=== PATIENT | male | born 1980 | race Caucasian/White ===

== ENCOUNTER 2017-08-11 14:23 | Emergency (ER) | payer SELFPAY ==
[2017-08-11 14:26] VITALS: BP 151/77; PULSE 84; RESP 17; TEMP 36.9; O2SAT 99; BMI 34.0
[2017-08-11 14:33] VITALS: O2SAT 98
--- NOTE | 2017-08-11 14:52 | RAD_ITS ---
STUDY: X-RAY - LEFT ANKLE REASON FOR EXAM: Male, 37 years old. POUND PIECE OF STEEL FELL ON ANKLE, PAIN TECHNIQUE: 3 view(s) of the ankle. COMPARISON: None. FINDINGS: Normal visualized distal tibia and fibula. Normal medial and lateral malleoli. Normal tibiotalar articulation and ankle mortise. Normal visualized talus and calcaneus. The visualized subtalar, talonavicular, calcaneocuboid and tarsal articulations are normal. There is subcutaneous soft tissue edema at the lateral aspect of the ankle. RAD/Ankle min 3 Views IMPRESSION: There is subcutaneous soft tissue edema at the lateral aspect of the ankle. Electronically Signed: Bettye Lopez MD at 15:10 EDT Tel , Service support ,
--- NOTE | 2017-08-11 15:30 | RAD_ITS ---
STUDY: X-RAY - LEFT FOOT CLINICAL: Male, 37 years old. PAIN S/P 900 POUND PIECE OF STEEL FELL ON LEG TECHNIQUE: 3 view(s) of the foot. COMPARISON: None. FINDINGS: Normal talus, calcaneus, and tarsal bones. Normal visualized subtalar, talonavicular, calcaneocuboid, tarsal and tarsometatarsal articulations. There is possible nondisplaced fracture at the base of the second metatarsal. Further evaluation by CT scan would be recommended. Normal metatarsophalangeal joint of the great toe. Normal tibial and fibular sesamoid bones. Normal interphalangeal joint of the great toe. Normal phalanges of the great toe. Normal second through fifth metatarsophalangeal joints. Normal interphalangeal joints and phalanges of the lesser toes. The soft tissue structures are unremarkable. RAD/Foot min 3 Views IMPRESSION: There is possible nondisplaced fracture at the base of the second metatarsal. Further evaluation by CT scan would be recommended. Electronically Signed: Bettye Lopez MD at 16:25 EDT Tel , Service support ,
[2017-08-11] MEDS: HYDROcodone Bitartrate/Apap 5/325 Tablet PO (15:54)
--- NOTE | 2017-08-11 16:02 | ED.VISSUMM ---
- ER Visit Summary Date of Service: 08/11/17 Chief Complaint: [Injury left foot and ankle] History of Present Illness: The patient is a 37 M [presents the emergency department after injuring his left foot and ankle approximately half hour prior to arrival in the emergency department. Patient states that he was cutting a [employer] trailer] that then fell toward him and knocked him down to the ground. The trailer weighed about 900 pounds. He was not crushed by the way to the trailer as it was then supported by the sides of the trailer as it fell. Patient did twist his foot and ankle as he went down to the ground. Patient denies any other injuries. Physical Examination: [HEENT-PERRLA, EOMI. Cranial nerves II through XII grossly intact. TMs clear. Mucous membranes moist. No adenopathy. Cardiovascular-regular rate and rhythm without murmur or ectopy Lungs-clear to auscultation, chest wall stable without crepitus or subcu emphysema Abdomen-normoactive bowel sounds, soft, nontender, no rebound or rigidity, no peritoneal signs. Extremities-intact ?4, normal range of motion, normal pulses. Left foot and ankle-patient has diffuse soft tissue swelling over the lateral malleolus and anterior ankle. Patient has tenderness to the proximal dorsal aspect of the foot. No ecchymosis or bruising or obvious deformity noted. Patient neurovascular intact. Test Results: [X-rays of the left foot and ankle were obtained which were negative for fractures only soft tissue swelling noted.] Emergency Department Course and Treatment: [Patient will be given air splint, Luis wrap, crutches. Patient was given 1 tablet of [place] for pain.] Treatment Plan: [Patient instructed to ice and elevate the extremity.] Disposition: [Discharged home in stable condition. Patient advised to follow-up with his primary care physician in 7-10 days.] Impression: [Left foot and ankle sprain] This note was generated with [employer] dictation software. It may contain incorrect words, spelling, and punctuation that were not noted in review of the chart prior to signing ED Disposition - Plan for ED Patient: Chief Complaint: Trauma Referrals: Care Physician,No Primary [Primary Care Provider] -
--- NOTE | 2017-08-11 16:05 | ED.DCSUM_ITS ---
- ER Visit Summary Date of Service: 08/11/17 Chief Complaint: [Injury left foot and ankle] History of Present Illness: The patient is a 37 M [presents the emergency department after injuring his left foot and ankle approximately half hour prior to arrival in the emergency department. Patient states that he was cutting a [employer] trailer] that then fell toward him and knocked him down to the ground. The trailer weighed about 900 pounds. He was not crushed by the way to the trailer as it was then supported by the sides of the trailer as it fell. Patient did twist his foot and ankle as he went down to the ground. Patient denies any other injuries. Physical Examination: [HEENT-PERRLA, EOMI. Cranial nerves II through XII grossly intact. TMs clear. Mucous membranes moist. No adenopathy. Cardiovascular-regular rate and rhythm without murmur or ectopy Lungs-clear to auscultation, chest wall stable without crepitus or subcu emphysema Abdomen-normoactive bowel sounds, soft, nontender, no rebound or rigidity, no peritoneal signs. Extremities-intact ?4, normal range of motion, normal pulses. Left foot and ankle-patient has diffuse soft tissue swelling over the lateral malleolus and anterior ankle. Patient has tenderness to the proximal dorsal aspect of the foot. No ecchymosis or bruising or obvious deformity noted. Patient neurovascular intact. Test Results: [X-rays of the left foot and ankle were obtained which were negative for fractures only soft tissue swelling noted.] Emergency Department Course and Treatment: [Patient will be given air splint, Luis wrap, crutches. Patient was given 1 tablet of [place] for pain.] Treatment Plan: [Patient instructed to ice and elevate the extremity.] Disposition: [Discharged home in stable condition. Patient advised to follow- up with his primary care physician in 7-10 days.] Impression: [Left foot and ankle sprain] This note was generated with [employer] dictation software. It may contain incorrect words, spelling, and punctuation that were not noted in review of the chart prior to signing ED Disposition - Plan for ED Patient: Chief Complaint: Trauma Referrals: Care Physician,No Primary [Primary Care Provider] -
--- NOTE | 2017-08-11 16:05 | ED.DEP ---
ED Disposition - Plan for ED Patient: Chief Complaint: Trauma Instructions: ED Sprain Foot, What Are Ankle Sprains? Prescriptions: Hydrocodone Bitart/Apap 5-325 [[place] 5/325] 1 - 2 tab PO Q4H PRN PRN 3 Days #12 tab PRN Reason: Pain Referrals: Care Physician,No Primary [Primary Care Provider] - 5-7 Days
--- NOTE | 2017-08-11 16:08 | DCINST.ED_ITS ---
ED Disposition - Plan for ED Patient: Chief Complaint: Trauma Instructions: ED Sprain Foot, What Are Ankle Sprains? Prescriptions: Hydrocodone Bitart/Apap 5-325 [[place] 5/325] 1 - 2 tab PO Q4H PRN PRN 3 Days #12 tab PRN Reason: Pain Referrals: Care Physician,No Primary [Primary Care Provider] - 5-7 Days
--- NOTE | 2017-08-11 16:34 | CT_ITS ---
History: Left foot injury. 900 pound piece of steel fell on the foot. Attention to second metatarsal base COMPARISON: Plain film earlier TECHNIQUE: Noncontrast CT left foot FINDINGS: There is a comminuted nondisplaced fracture through the base of the second metatarsal with subjacent soft tissue swelling. In addition, minimally displaced fracture in the medial cuneiform. Remaining osseous structures are within normal limits. IMPRESSION: Fracture at the base of the second metatarsal as well as medial cuneiform as detailed above Electronically Signed: Fly Finney DO at 17:32 EDT Tel , Service support , CT/Extremity Lower without Contra
[2017-08-11 16:36] VITALS: BP 138/76; PULSE 77; RESP 18; O2SAT 98
--- NOTE | 2017-08-11 17:19 | ED.DEP ---
ED Disposition - Plan for ED Patient: Chief Complaint: Trauma Instructions: What Are Ankle Sprains?, ED Sprain Foot, ED Fx Foot Prescriptions: Hydrocodone Bitart/Apap 5-325 [[place] 5/325] 1 - 2 tab PO Q4H PRN PRN 3 Days #12 tab PRN Reason: Pain Hydrocodone Bitart/Apap 5-325 [[place] 5/325] 1 - 2 tab PO Q4H PRN PRN 3 Days #12 tab PRN Reason: Pain Referrals: Karime Rivas DPM [STAFF PHYSICIAN] - 3-5 Days
[2017-08-11 17:20] VITALS: BP 137/70; PULSE 80; RESP 18; O2SAT 99
--- NOTE | 2017-08-11 17:23 | ED.DCSUM_ITS ---
- ER Visit Summary Date of Service: 08/11/17 Chief Complaint: [Foot injury, addendum to initial dictation] History of Present Illness: The patient is a 37 M [presented with an injury to his left foot and initial x-ray films were unremarkable of the left ankle. Patient had discomfort to the proximal foot therefore dedicated foot x-rays were obtained which were read by radiology as questionable fracture at the base of the second metatarsal and recommended obtaining a CT scan of the foot.] Physical Examination: [] Test Results: [CT scan of the foot obtained showed fractures at the base of the second and third metatarsals] Emergency Department Course and Treatment: [I discussed case with Dr. Rivas recommended a posterior splint, analgesia, and follow-up with her office later this week. Patient was placed in a posterior splint.] Treatment Plan: [] Disposition: [Discharged home in stable condition] Impression: [Left foot fracture-second and third metatarsal bases.] This note was generated with [employer] dictation software. It may contain incorrect words, spelling, and punctuation that were not noted in review of the chart prior to signing ED Disposition - Plan for ED Patient: Chief Complaint: Trauma Instructions: What Are Ankle Sprains?, ED Fx Foot, ED Sprain Foot Prescriptions: Hydrocodone Bitart/Apap 5-325 [[place] 5/325] 1 - 2 tab PO Q4H PRN PRN 3 Days #12 tab PRN Reason: Pain Hydrocodone Bitart/Apap 5-325 [[place] 5/325] 1 - 2 tab PO Q4H PRN PRN 3 Days #12 tab PRN Reason: Pain Referrals: Karime Rivas DPM [STAFF PHYSICIAN] - 3-5 Days
[2017-08-11 17:58] VITALS: BP 129/77; PULSE 60; RESP 18; O2SAT 99
== END 2017-08-11 17:58 | disposition home or self-care (01) ==
LOC: ED 15:04
PROVIDERS: Emergency Provider Emergency Medicine
DX: S93.402A Sprain of unspecified ligament of left ankle, initial encounter (principal); S92.322A Displaced fracture of second metatarsal bone, left foot, initial encounter for closed fracture; S92.332A Displaced fracture of third metatarsal bone, left foot, initial encounter for closed fracture; V09.9XXA Pedestrian injured in unspecified transport accident, initial encounter; Y93.89 Activity, other specified; Y92.9 Unspecified place or not applicable; Y99.9 Unspecified external cause status
CPT/HCPCS: 29515; 73610; 73630; 73700; 99284